=== PATIENT | female | born 1965 | race Two or more races ===

== ENCOUNTER → 2019-06-13 | Outpatient (CLI) | payer SELFPAY ==
[2019-06-21 12:58] LABS: HPV APTIMA, High Risk Negative (Negative)
[2019-06-21 13:03] LABS: HPV Reflexed? YES, CHARGE PATIENT
== END | disposition home or self-care (01) ==
LOC: LABSPEC 06-14 11:02
PROVIDERS: Referring Provider Obstetrics & Gynecology; Visit Provider Obstetrics & Gynecology
DX: Z12.4 Encounter for screening for malignant neoplasm of cervix (principal)
CPT/HCPCS: 87624; 88175; G0145

== ENCOUNTER 2019-07-17 11:34 | Day surgery (SDC) | payer SELFPAY, OTHER ==
[2019-07-12 12:48] LABS: Hematocrit 42.2 % (37-47); Hemoglobin 14.8 g/dL (12.0-15.0); Mean Corp Hgb Conc 35.1 g/dL (32-36); Mean Corpuscular Volume 91.1 fL (81-99); Mean Platelet Vol. 9.7 fl (6.2-12.0); Platelet Count 212 K/mm3 (150-450); RBC Distribution Width CV 12.5 % (11.6-14.6); RBC Distribution Width SD 41.2 fl (35.1-43.9); Red Blood Count 4.63 M/mm3 (4.2-5.4)
[2019-07-12 13:05] LABS: Internal QC Validated? YES +Cl - CLEAR BKGD; Pregnancy, Serum, hCG Quali. NEGATIVE Negative
[2019-07-12 13:08] LABS: International Normalized Ratio 1.1; Partial Thromboplast Time 32.7 Seconds (24.1-36.2); Prothrombin Time (Protime)PT. 13.9 SECONDS (11.7-14.9)
[2019-07-12 13:11] LABS: Creatinine, Serum 0.76 mg/dL (0.55-1.02); EST Glomerular Filtration Rate 85 mL/min (>60); Est Glom Filt Rate - Afr Amer 102 mL/min (>60)
--- NOTE | 2019-07-16 18:07 | HP.PCM_ITS ---
History and Physical Date of Admission: 07/17/19 Surgical History and Physical Parisa Martini, a 53 year old female 4 1 0 0 4, presents for Vaginal Hysterectomy and AP Repair on July 17, 2019 at 1:15. -- Prolapse Symptoms -- Parisa was referred per Elba Coats at [facility] for uterine prolapse. Pt relates she began to notice a bulge from the vagina in and has progressively gotten worse. She is very intermittent with menses for the past 2yrs but has never gone more than 8mos with no bleeding. Pt notes difficulty moving bowels and intermittent urine leakage and difficulty emptying. Uterine prolapse, questionable cystocele/rectocele which began Approx January 2019. Parisa claims it started suddenly and has been present approx 6mos. It occurs with any activity. It is located in the vagina. Parisa characterizes it to be non-radiating. Parisa characterizes the quality annoying and no relief in sight. Severity is moderate but now worsening. It is aggravated by Any activity. It is relieved by lying down. Associated signs and symptoms are bulge from vagina. MEDICATIONS HISTORY: Patient is also takin. No Meds ALLERGIES: No Known Drug Allergies Infections - Chicken pox childhood Illnesses - no serious past illnesses Hospitalizations - Childbirth Review of Systems: GENERAL - Denies fever, or chills SKIN - Denies skin changes EYES - Denies visual changes EARS - Denies difficulty hearing NOSE - Denies nasal congestion or bleeding MOUTH - Denies sore throat or difficulty swallowing NECK - Denies pain or swelling RESPIRATORY - Denies shortness of breath or wheezing CARDIOVASCULAR - Denies palpitations or chest pain GASTROINTESTINAL - Denies nausea, vomiting, diarrhea, constipation GENITOURINARY - Denies dysuria, frequency of urination, incontinence of urine MUSCULOSKELETAL - Denies joint or muscle pain NEUROLOGICAL - Denies localized numbness or weakness PSYCHIATRIC - Denies depression or anxiety ENDOCRINE - Denies heat or cold intolerance, weight loss or gain HEMATO-IMMUNOLOGIC - Denies excessive bleeding with cuts SOCIAL HISTORY: Alcohol Use - denies drinking Smoking - denies smoking Diet - no special diet Lifestyle - Exercise - regular Seat Belt Use - always Employer - Unemployed Job Description - Housewife Illicit Drug Use - denies use of street drugs Sexual Activity - Spouse-Sig Other Name - Stephen Spouse-Sig Other Occupation - Self Employed Control - perimenopausal FAMILY HISTORY: nc MENSTRUAL HISTORY: LMP Known?- Approximate-Month Known, Regularity - missed periods, Frequency - variable days, LMP - 12/12/18 PAST PREGNANCIES: Total Pregnancies - 5; Full Term Pregnancies - 4; Premature - 1; Abortions, Induced - 0; Abortions, Spontaneous - 0; Ectopics - 0; Multiple Births - 0; Living Children - 4 SURGICAL HISTORY: 1. none PHYSICAL EXAM BP- 120/90 Sitting, Right arm, regular cuff Temp- 97.5 Taken Orally Weight- 145.13931 lbs Height- 62.00 inch BMI:26.69 CONSTITUTIONAL - NAD, well nourished, and well developed SKIN - No rash, lesions, or ulcers HEENT - Normocephalic, PERRLA, EOMI NECK - No nodes, no nuchal rigidity and thyroid normal size and texture LYMPH NODES - Palpation of lymph nodes in neck and groins within normal limits LUNGS - CTA x2 without wheezes, crackles or rales CARDIAC - Regular rate and rhythm without rubs, murmurs, or gallops ABDOMEN - Without hepatosplenomegaly, distention, masses, rebound, or guarding; normal bowel sounds; no hernias EXTREMITIES - No edema or calf tenderness NEUROLOGICAL - Cranial nerves II-XII grossly intact PSYCHIATRIC - A and O to time, place, person, mood and affect External Genitial Vagina - non-tender without lesions Urethra/Urethral Meatus - non-tender Bladder - non-tender Vagina - vaginal colin are pink and moist without loss of rugae and no evidence of atropy and cystocele 2 cm outside introitus; rectocele to introitus Cervix - without cervical motion tenderness and has normal size and features without evident lesions and cervix protrudes 2-3 cm outside introitus with bearing down Uterus - multiparous size 6 cm & wt 75-125 g Adnexa - clear without massess or tenderness ASSESSMENT/PLAN: 1. Cystocele Midline, Incomplete Uterovaginal Prolapse and Rectocele Very symptomatic. Discussed options for treatment including expxectant, pessary use, or surgery. Desires the surgery. Plan to proceed with Vaginal Hysterectomy and AP Repair. Discussed RBAs and all questions answered.
[2019-07-17] VITALS (10 sets, daily range): BP systolic 115–143; BP diastolic 59–78; PULSE 44–60; RESP 16–18; TEMP 36.3–36.9; O2SAT 98–100; BMI 23.8
[2019-07-17 12:15] LABS: Internal QC Validated? YES +Cl - CLEAR BKGD; Pregnancy, Urine Negative Negative
[2019-07-17] MEDS: Lactated Ringers 1,000 ML 100 ML IV ×2 (12:25→14:01)
--- NOTE | 2019-07-17 13:35 | HYST_PTH ---
PATIENT: ILYA BRUSH [place] [facility] [place][id number] AGE/SX: 53/F ROOM: RE07/17/[address]: Dr. Naseem Alba MD : [id number] BED: DIS: 07/18/2019 SPEC #: [id number] RECD: 07/18/19 07:41 STATUS: INOCENCIA TORRESGavin #: [id number] SAFIA: 07/17/19 13:[address]: Naseem Alba DEPT: SURGICAL PATHOLOGY RECD BY: Seb Gregg ENTERED: 07/18/19 08:10 SP TYPE: HYSTERECT OTHR DR: Dr. Chris Ascencio MD No Primary Care Phys Tissues: Uterus, NOS Procedures: Surgery Specimen Level V HEADER OPERATION: Vaginal hysterectomy, A & P repair PRE-OP DIAGNOSIS: Incomplete uterovaginal prolapse, cystocele, rectocele TISSUE SUBMITTED: Uterus, cervix, vaginal mucosa MICROSCOPIC DIAGNOSIS Uterus, cervix and vaginal mucosa, vaginal hysterectomy and A & P repair: Cervix - chronic cystic cervicitis. Endometrium - proliferative endometrium. - Benign endometrial polyp (1.5 cm in greatest dimension). Myometrium - intramural leiomyomas (largest measuring 1 cm in greatest dimension). - Adenomyosis. Vaginal mucosal tissue - fragments of squamous mucosa with reactive changes. SJ:rosa 07/19/19 MICROSCOPIC DESCRIPTION Slides are reviewed. GROSS DESCRIPTION Received in fixative is one container labeled with the patient's name and designated uterus, cervix and vaginal mucosa. The specimen consists of a hysterectomy specimen consisting of uterus with cervix and detached fragments of mucosal tissue. The uterus with cervix weighs 154 gm and measures 12 x 7 x 5.5 cm. The serosal surface is chowdhury, glistening and focally ragged. The ectocervical mucosa is unremarkable. The external os is oval in contour. The endocervical canal measures 4.5 cm in length and unremarkable. Sections of cervix reveal a few cysts filled with mucoid material. The triangular endometrial cavity measures 6 cm in length and 3 cm in width. The endometrial cavity shows a chowdhury-pink polyp measuring 1.5 x 1 x 0.3 cm. The myometrial wall underneath the polyp is not indurated. The rest of the endometrium measures 0.1 cm in thickness. Sections of the uterine wall reveal multiple intramural nodular masses. The largest mass measures 1 cm in greatest dimension. Sections of these masses reveal chowdhury whorled cut surfaces without areas of hemorrhage, necrosis or cystic degeneration. The uninvolved uterine wall measures up to 2.5 cm in thickness. Also present in the container are four variable sized detached pieces of chowdhury mucosal tissue measuring in aggregate 6 x 4.5 x 1 cm. No mucosal lesion is identified. Instrumentation moreno are noted. Tower Equipment Installer sections are submitted in nine cassettes as follows: 1 - anterior cervix, 2 - posterior cervix, 3 & 4 - anterior uterine wall, 5 & 6 - posterior uterine wall, 7 - endometrial polyp, entirely submitted with underlying uterine wall, 8 - nodular masses, 9??mucosal tissue. / AKMALA:rosa 07/18/19 TC: 1 CPT: 18556
--- NOTE | 2019-07-17 14:40 | OP.PCM_ITS ---
Report of Operation Date of Procedure: 07/17/19 Pre-Operative Diagnosis: Incomplete Uterovaginal Prolapse, Cystocele, Rectocele Post-Operative Diagnosis: Incomplete Uterovaginal Prolapse, Cystocele, Rectocele Surgery/Procedure Performed:: Vaginal Hysterectomy and Anterior Posterior Repair Description of Surgical Findings:: 10 cm uterus which protruded about 3 cm outside the vaginal introitus. Large cystocele and mild rectocele. director global strategic publisher sales: Oswald Reed Type of Anesthesia:: General - No tracheal Anesthesiologist: Jovita Samuel Specimen's removed: Uterus and vaginal mucosa Drains: Mckeon to straight drain Estimated Blood Loss (mL): 100 cc Fluids Replaced: Crystalloid Description of Procedure: Surgeon: Naseem Alba MD, FACOG Indications: This is a 53-year-old who is been having problems with vaginal prolapse symptoms. Conservative measures have not been helpful. Given this the patient desires that we proceed the above procedure. She has been counseled regarding the risk and indications of this procedure including the possibility of bleeding, infection, and injury to surrounding structures such as bowel bladder. All questions were answered. Procedure: Patient was taken to the operating room where after induction of gen eral anesthesia she was placed in the dorsal lithotomy position and prepped and draped in the usual sterile fashion. A Mckeon catheter was placed. Anterior cervix was grasped with a tenaculum and anterior cervix circumscribed with cautery on a setting of 35 W coagulation. Anterior vaginal mucosa was undermined and anterior peritoneum was easily entered. The posterior aspect of the cervix was circumscribed with a knife and posterior peritoneum eventually entered after approximately 3 bites on either side of the uterine cervix. Progressive bites were taken on either side of the uterine cerv ix and each pedicle ligated with 0 Vicryl suture. Superior pedicles were ligated ?2 with 0 Vicryl suture and sidewall pedicles were examined and oversewn where necessary with [id number] 0 Vicryl suture to achieve hemostasis. Posterior vaginal cuff was oversewn with running locked 0 Vicryl suture. Hemostasis was noted and peritoneum was closed in a pursestring fashion incorporating superior pedicles into the stitch. Vaginal cuff was then closed front to back with interrupted [id number] 0 Vicryl suture. Hemostasis was noted. Attention was turned toward the anterior repair portion of the procedure. Anterior vaginal mucosa was undermined and divided and then imbricated toward the midline with interrupted 0 Vicryl sutures. Vaginal mucosa was trimmed and then closed with interrupted 2-0 chromic suture. Vaginal cuff was then closed front to back with interrupted [id number] 0 Vicryl suture. Hemostasis was noted. Attention was turned toward the posterior repair portion of the procedure. Remnants of the hymenal ring were grasped with Allises and a V-shaped incision was made in the perineum. Vaginal mucosa in the lower third of the vagina was trimmed and then closed with running locked 2-0 chromic suture. Perineum was closed in the usual fashion with running and subcuticular, and [id number] 2-0 chromic suture. Hemostasis was noted. Mckeon catheter was again opened and clear yellow urine was noted. Vagina was packed with iodoform tape. Patient tolerated the procedure well was taken to recovery room in satisfactory condition; sponge instrument and needle counts were all reportedly correct. Estimated blood loss for the case was 100 cc. Cefotan 2 g IV was given prior to beginning the operative procedure. There were no apparent complications of the surgery. Specimen to pathology was uterus and vaginal mucosa. Grafts/Implants Used: None - Complications None - Admit VTE Documentation VTE Present on Admission: Yes VTE Mechan Device Prophylaxis: SCD's VTE Pharm Prophylaxis ordered?: Yes
[2019-07-17] MEDS: Lubricating Jelly 60 GM Tube 30 GM TOPICAL (14:48)
--- NOTE | 2019-07-17 16:34 | DCINST_ITS ---
Discharge Diet: No Restrictions Discharge Activity: Return to Normal Activity, May Not Drive - while taking narcotic pain medications., May Shower, May Take a Tub Bath May resume sexual activity in: 6-8 weeks Call your doctor if your incision/area has: Continuous Slow Oozing, Sudden Inc reased Bleeding, Increased Pain/ Swelling, Increased Redness, Foul Smelling Discharge Call your doctor if you observe: Fever of 101 or Higher, Inability to urinate, Inability to have a bowel movement, Using more than one pad per hour Allergies/Adverse Reactions: Allergies No Known Allergies Allergy (Verified 07/17/19 12:12) Medications to take at Discharge Docusate Sodium [Colace] 100 mg PO BID PRN PRN #60 cap 07/17/19 RX: Oxycodone [Oxyir] 5 mg PO Q6H PRN PRN 7 Days #20 tab 07/17/19 The following prescriptions were given: Docusate Sodium [Colace] 100 mg PO BID PRN PRN #60 cap PRN Reason: Constipation Prescription Printed RX: Oxycodone [Oxyir] 5 mg PO Q6H PRN PRN 7 Days #20 tab PRN Reason: Pain Score 6-10/10 Prescription Printed Primary Care Physician: Care Physician,No Primary [Primary Care Provider] - Test Results: Test results from this visit will be discussed in further detail at your follow- up appointment, if applicable. Please Follow Up With: Naseem Alba MD When: 2 to 3 weeks
[2019-07-17] MEDS: Dextrose 5%-Lactated Ringers 1,000 ML 150 ML IV (18:39)
[2019-07-17] MEDS: Enoxaparin 30 MG/0.3 ML Syringe SC (20:22)
[2019-07-17] MEDS: Ketorolac 30 MG/ML Syringe IV (22:10)
[2019-07-17] MEDS: 0.9% Saline Lock 10 ML Syringe IV (22:12)
[2019-07-18] MEDS: Ondansetron 4 MG/2 ML Vial IV (00:34)
[2019-07-18] MEDS: Dextrose 5%-Lactated Ringers 1,000 ML 150 ML IV ×2 (01:34→08:56)
[2019-07-18 02:00] VITALS: BP 92/54; PULSE 60; RESP 18; TEMP 36.8; O2SAT 96
[2019-07-18] MEDS: Ketorolac 30 MG/ML Syringe IV ×2 (03:34→08:54)
[2019-07-18 05:21] VITALS: BP 92/52; PULSE 72; RESP 18; TEMP 37.2; O2SAT 98
[2019-07-18 06:47] LABS: Hematocrit 31.1 % (37-47); Mean Corp Hgb Conc 35.4 g/dL (32-36); Mean Corpuscular Hgb 31.8 pg (27.0-32.0); Mean Corpuscular Volume 89.9 fL (81-99); Mean Platelet Vol. 9.5 fl (6.2-12.0); Platelet Count 217 K/mm3 (150-450); RBC Distribution Width CV 12.1 % (11.6-14.6); RBC Distribution Width SD 39.9 fl (35.1-43.9); Red Blood Count 3.46 M/mm3 (4.2-5.4); White Blood Count 9.4 K/mm3 (4.4-11.0)
[2019-07-18 07:05] LABS: Creatinine, Serum 1.01 mg/dL (0.55-1.02); EST Glomerular Filtration Rate 61 mL/min (>60); Est Glom Filt Rate - Afr Amer 73 mL/min (>60)
--- NOTE | 2019-07-18 08:51 | PN.OBGYN_ITS ---
Subjective: Patient without complaints. Tolerating diet well. Minimal vaginal bleeding. Minimal pain. Ready to go home. - Physical Exam Vitals/I&O's: Vital Signs Temp Pulse Resp BP Pulse Ox 98.9 F 72 18 92/52 L 98 07/18/19 05:21 07/18/19 05:21 07/18/19 05:21 07/18/19 05:21 07/18/19 05:21 Oxygen Delivery Method Room Air Weight: 142 lb 13.753 oz Body Mass Index (BMI) 23.8 Intake and Output for Last 24 Hours 07/16/19 07/17/19 07/18/19 23:59 23:59 23:59 Intake Total 1863.33 / 1863.33 1415 / 1415 Output Total 850 / 850 400 / 400 Balance 1013.33 / 1013.33 1015 / 1015 Comment: Vaginal pack removed. Hemoglobin and creatinine okay. Laboratory Results 07/17/19 11:53: Urine Test Negative 07/18/19 06:28: WBC 9.4, RBC 3.46 L, Hgb 11.0 L, Hct 31.1 L, MCV 89.9, MCH 31.8, MCHC 35.4, RDW Std Deviation 39.9, RDW Coeff of Marielena 12.1, Plt Count 217, MPV 9.5 07/18/19 06:28: Creatinine 1.01, Estim Creat Clear Calc 57.30, Est GFR (MDRD) Af Amer 73, Est GFR (MDRD) Non-Af 61 Current Medications Acetaminophen (Tylenol) 1,000 mg PO Q8H PRN PRN PRN Reason: Pain Score 1-3/10 or Fever Docusate Sodium (Colace) 100 mg PO BID PRN PRN PRN Reason: CONSTIPATION Hydromorphone HCl (Dilaudid Inj) 0.5 mg IV Q3H PRN PRN PRN Reason: Pain Score 4-10/10 Dextrose/Lactated Ringer's () 1,000 mls @ 150 mls/hr IV .Q6H40M [facility] Last Infusion: 07/18/19 02:05 Dose: 150 mls/hr Documented by: Ketorolac Tromethamine (Toradol) 30 mg IV Q6H [facility] Stop: 07/22/19 22:01 Last Admin: 07/18/19 03:34 Dose: 30 mg Documented by: Ondansetron HCl (Zofran) 4 mg IV Q4H PRN PRN PRN Reason: NAUSEA Last Admin: 07/18/19 00:34 Dose: 4 mg Documented by: Oxycodone HCl (Oxyir) 5 mg PO Q4H PRN PRN PRN Reason: Pain Score 4-10/10 Simethicone (Mylicon) 80 mg PO PC [facility] Last Admin: 07/17/19 22:10 Dose: 80 mg Documented by: Sodium Chloride () 10 - 40 ml IV UD PRN PRN Reason: SALINE FLUSH Last Admin: 07/17/19 22:12 Dose: 10 ml Documented by: Medical Necessity - Tobacco Use Smoking Status: Never smoker Assessment/Plan Doing well postoperative day #1 status post vaginal hysterectomy and anterior posterior repair. Will release to home with routine instructions.
[2019-07-18 09:02] VITALS: BP 93/53; PULSE 65; RESP 16; TEMP 37; O2SAT 98
[2019-07-18 11:19] VITALS: BP 98/57; PULSE 63; RESP 16; TEMP 37; O2SAT 99
--- NOTE | 2019-07-18 11:20 | NURSING ---
removed scopolamine patch
[2019-07-18 12:41] VITALS: BP 95/52; PULSE 66
[2019-07-18 14:58] VITALS: BP 94/53; PULSE 68; RESP 16; TEMP 36.4; O2SAT 100
--- NOTE | 2019-07-18 14:59 | NURSING ---
pt up in chair denies feeling dizzy or nausea.
== END 2019-07-18 15:10 | disposition home or self-care (01) ==
LOC: SDC 11:37 → AC 11:40 → MS3 14:42
PROVIDERS: Anesthesiology; Referring Provider Obstetrics & Gynecology; Visit Provider Obstetrics & Gynecology
PROC: (CPT 58260; principal; 2019-07-17 13:15)
DX: N81.2 Incomplete uterovaginal prolapse (principal); N80.0 Endometriosis of uterus; D25.1 Intramural leiomyoma of uterus; N72 Inflammatory disease of cervix uteri; K21.9 Gastro-esophageal reflux disease without esophagitis
CPT/HCPCS: 00942; 57260; 58260; 36415; 81025; 82565; 84703; 85027; 85610; 85730; 86850; 86900; 86901; 88307; 93005; J7120; A4216; J2405